=== PATIENT | female | born 1940 | race Caucasian/White ===

== ENCOUNTER 2019-07-08 17:12 | Emergency (ER) | payer MEDICARE ==
--- NOTE | 2019-07-08 17:17 | ERPHSYRPT ---
- History of Present Illness Time Seen by Provider: 07/08/19 17:17 Source: patient, family Exam Limitations: no limitations Physician History: 78 y/o white female accidentally tripped over a cement step in her garage. pt fell directly onto face. complains of facial pain and headache. denies loc at the time of incident but has persistent sx of pain, swelling and bruising Occurred: days ago (2) Reason for Fall: tripped Injuries/Pain Location: head, face Loss of Consciousness: no loss of consciousness Quality: aching, throbbing Severity of Pain-Max: moderate Severity of Pain-Current: moderate Associated Symptoms (Fall): denies symptoms, No confusion, No chest pain, No extremity injury, No muscle spasms, No neck pain, No seizures, No shortness of breath Allergies/Adverse Reactions: cephalexin [From Keflex] Allergy (Verified 07/08/19 17:20) Home Medications: Citalopram Hydrobromide 20 mg* [ceLEXa 20 MG] 20 mg PO DAILY 07/08/19 [ History] Levothyroxine Sodium 100 Mcg [Synthroid 100 Mcg] 100 mcg PO DAILY 07/08/19 [History] Lisinopril/Hydrochlorothiazide [Lisinopril-Hctz 20-25 mg Tab] 20 - 25 mg PO DAILY 07/08/19 [History] - Review of Systems Constitutional: No Symptoms Eyes: No Symptoms Ears, Nose, & Throat: Other (facial pain, bruising and swelling) Respiratory: No Symptoms Cardiac: No Symptoms Abdominal/Gastrointestinal: No Symptoms Genitourinary Symptoms: No Symptoms Musculoskeletal: No Symptoms Neurological: Headache Psychological: No Symptoms Endocrine: No Symptoms Hematologic/Lymphatic: No Symptoms Immunological/Allergic: No Symptoms All Other Systems: Reviewed and Negative - Past Medical History Pertinent Past Medical History: Yes Neurological History: No Pertinent History ENT History: No Pertinent History Cardiac History: No Pertinent History Respiratory History: No Pertinent History Endocrine Medical History: No Pertinent History Musculoskeletal History: No Pertinent History GI Medical History: No Pertinent History History: No Pertinent History Psycho-Social History: No Pertinent History Female Reproductive Disorders: No Pertinent History - Past Surgical History Neuro Surgical History: No Pertinent History Cardiac: No Pertinent History Respiratory: No Pertinent History Gastrointestinal: No Pertinent History Genitourinary: No Pertinent History Musculoskeletal: No Pertinent History Female Surgical History: No Pertinent History - Nursing Vital Signs Nursing Vital Signs: Initial Vital Signs Temperature 97.6 F 07/08/19 17:25 Pulse Rate 73 07/08/19 17:25 Respiratory Rate 18 07/08/19 17:25 Blood Pressure 180/101 07/08/19 17:25 O2 Sat by Pulse Oximetry 95 07/08/19 17:25 Pain Scale Pain Intensity 0 - [place] Coma Score Best Eye Response ([place]): (4) open spontaneously Best Verbal Response ([place]): (5) oriented Best Motor Response ([place]): (6) obeys commands [place] Total: 15 - Physical Exam General Appearance: no apparent distress, alert, anxiety Head Injury: ecchymosis, swelling, tenderness Eye Exam: PERRL/EOMI, eyes nml inspection ENT Exam: airway nml, hearing grossly normal, No dental injury, No hemotympanum Neck Exam: supple, trachea midline, full range of motion, normal alignment, normal inspection Respiratory/Chest Exam: No chest tenderness Gastrointestinal Exam: No tenderness Rectal Exam: not done Back Exam: normal inspection, normal range of motion, No CVA tenderness, No vertebral tenderness Extremity Exam: normal inspection, normal range of motion, capillary refill <3 sec, pelvis stable Skin Exam: ecchymosis (see above), No laceration SpO2 Interpretation: borderline oxygenation O2 Delivery: Room Air Ordered Tests: Active Orders 24 hr Category Date Time Status FACIAL BONES WO CONTRAST [CT] Stat Exams 07/08/19 17:34 Taken HEAD WITHOUT CONTRAST [CT] Stat Exams 07/08/19 17:35 Taken - Progress Progress: unchanged, re-examined Progress Note: 07/08/19 19:28 ct head - no acute intracranial abnormality. ct facial bones- no acute fx. Counseled pt/family regarding: diagnosis, need for follow-up, rad results - Departure Departure Disposition: Home Clinical Impression: Facial trauma, Head trauma, Abrasions of multiple sites, Fall, HTN ( hypertension) Condition: Stable Critical Care Time: No Referrals: JOHN BOOKER MD [Primary Care Provider] - Additional Instructions: keep all abrasion sites clean daily with soap and water. apply antibiotic daily to sites. take your medications as prescribed. follow up with primary doctor as needed.
[2019-07-08] MEDS ORDERED: Catapres 0.1 MG PO ONE ×2 (19:32→20:00)
[2019-07-08] MEDS ORDERED: Catapres 0.1 MG ONE ×2 (19:32→20:00)
[2019-07-08 20:30] VITALS: BP 165/81; PULSE 60; O2SAT 97
--- NOTE | 2019-07-08 22:41 | XRAY ---
Indication: Facial pain and bruising following fall 2 days ago. Multiple contiguous axial images obtained through the head without contrast. Comparison: April 25, 2006. Age-appropriate global atrophy and mild periventricular degenerative microvascular ischemia bilaterally. No acute intracranial hemorrhage, abnormal extra-axial fluid collection, or mass effect. Fourth ventricle is midline without hydrocephalus. Bony calvarium intact. Visualized paranasal sinuses and mastoid air cells are clear. CT facial bones reported separately. Impression: Nonacute senile brain. Comment: Preliminary interpretation was made by [facility]. No discrepancy.
--- NOTE | 2019-07-08 22:43 | XRAY ---
Indication: Facial pain and bruising following fall 2 days ago. Multiple contiguous axial images obtained through the facial bones. Sagittal and coronal reformatted images obtained. Comparison: None Patient is edentulous. Axial images negative for acute fracture, suspicious bone lesions, or radiopaque foreign body. Orbits including roof, [place], and floors are intact. Paranasal sinuses and nasal passages are clear. Minimal C3-C5 degenerative disc space narrowing. Remaining visualized noncontrasted soft tissues are unremarkable. CT head reported separately. Impression: Negative CT facial bones. Minimal C3-C5 degenerative changes. Comment: Preliminary interpretation was made by [facility]. No discrepancy.
== END 2019-07-08 20:35 | disposition home or self-care (01) ==
LOC: ED 17:12
DX: S00.81XA Abrasion of other part of head, initial encounter (principal); W03.XXXA Other fall on same level due to collision with another person, initial encounter; Y93.89 Activity, other specified; Y92.89 Other specified places as the place of occurrence of the external cause; I10 Essential (primary) hypertension
CPT/HCPCS: 70450; 70486; 99284; A9270-GY

== ENCOUNTER 2021-03-13 12:41 | Day surgery (SDC) | payer MEDICARE ==
[2021-03-13] MEDS ORDERED: LIDOCAINE HCL 2% 100 MG/5 ML IJ ONE (12:42)
[2021-03-13] MEDS ORDERED: Depo-Medrol 40 MG/ML IM ONE (12:42)
[2021-03-13] MEDS ORDERED: Lactated Ringers 1,000 ML IV ONE (13:40)
[2021-03-13] MEDS ORDERED: DIPRIVAN 200 MG/20 ML IV ONE (13:41)
--- NOTE | 2021-03-13 14:26 | XRAY ---
9 seconds of fluoroscopy was used in surgery for a bilateral L4-S1 MBB.
--- NOTE | 2021-03-13 14:29 | XRAY ---
Indication: Bilateral L4-S1 MBB. Intraoperative fluoroscopy provided for 9 seconds. Single digital spot image submitted for interpretation demonstrates posterior needle tips projecting over the expected left and right L4-S1 nerve roots. Correlate with intraoperative findings/report.
== END 2021-03-13 14:10 | disposition home or self-care (01) ==
LOC: SDC-PAIN 12:41
PROVIDERS: ATTEND Psychiatry & Neurology Pain Medicine
DX: M47.816 Spondylosis without myelopathy or radiculopathy, lumbar region (principal); Z79.899 Other long term (current) drug therapy
CPT/HCPCS: 64493; 64494; 72020; 77002; J1030; J2704

== ENCOUNTER 2021-05-08 08:45 | Day surgery (SDC) | payer MEDICARE ==
[2021-05-08] MEDS ORDERED: LIDOCAINE HCL 2% 100 MG/5 ML IJ ONE (08:46)
[2021-05-08] MEDS ORDERED: Depo-Medrol 40 MG/ML IM ONE (08:46)
[2021-05-08] MEDS ORDERED: DIPRIVAN 200 MG/20 ML IV ONE (09:44)
[2021-05-08] MEDS ORDERED: Lactated Ringers 1,000 ML IV ONE (10:09)
--- NOTE | 2021-05-08 10:43 | XRAY ---
Indication: Bilateral L4-S1 MBB. Intraoperative fluoroscopy provided for 15 seconds. Single digital spot image submitted for interpretation demonstrates posterior needle tips projecting over the expected left and right L4-S1 nerve roots. Correlate with intraoperative findings/report.
--- NOTE | 2021-05-08 10:45 | XRAY ---
15 seconds fluoroscopy time in surgery for bilateral L4-S1 MBB.
== END 2021-05-08 10:12 | disposition home or self-care (01) ==
LOC: SDC-PAIN 08:45
PROVIDERS: ATTEND Psychiatry & Neurology Pain Medicine
DX: M47.816 Spondylosis without myelopathy or radiculopathy, lumbar region (principal); I10 Essential (primary) hypertension; M19.90 Unspecified osteoarthritis, unspecified site; Z79.899 Other long term (current) drug therapy
CPT/HCPCS: 64493; 64494; 72020; 77002; J1030; J2704

== ENCOUNTER 2021-07-10 11:47 | Day surgery (SDC) | payer MEDICARE ==
[2021-07-10] MEDS ORDERED: Xylocaine 1% Vial 30 ML PF IJ ONE (11:48)
[2021-07-10] MEDS ORDERED: BUPIVACAINE 0.5% VIAL IJ ONE (11:48)
[2021-07-10] MEDS ORDERED: Depo-Medrol 40 MG/ML IM ONE (11:48)
[2021-07-10] MEDS ORDERED: Lactated Ringers 1,000 ML IV ONE (13:52)
[2021-07-10] MEDS ORDERED: DIPRIVAN 200 MG/20 ML IV ONE (14:26)
--- NOTE | 2021-07-10 16:22 | XRAY ---
Indication: Right L4-S1 RFA. Intraoperative fluoroscopy provided for 25 seconds. 3 digital spot image submitted for interpretation demonstrates posterior needle tips projecting over the expected right L4-S1 nerve roots. Correlate with intraoperative findings/report.
--- NOTE | 2021-07-10 16:38 | XRAY ---
25 seconds of fluoroscopy was used in surgery for a right L4-S1 RFA.
== END 2021-07-10 14:59 | disposition home or self-care (01) ==
LOC: SDC-PAIN 11:47
PROVIDERS: ATTEND Psychiatry & Neurology Pain Medicine
DX: M47.816 Spondylosis without myelopathy or radiculopathy, lumbar region (principal); I10 Essential (primary) hypertension; Z79.899 Other long term (current) drug therapy
CPT/HCPCS: 64635; 64636; 72100; 77002; 99100; J1030; J2001; J2704

== ENCOUNTER 2021-07-17 09:38 | Day surgery (SDC) | payer MEDICARE ==
[2021-07-17] MEDS ORDERED: Xylocaine 1% Vial 30 ML PF IJ ONE (09:39)
[2021-07-17] MEDS ORDERED: BUPIVACAINE 0.5% VIAL IJ ONE (09:39)
[2021-07-17] MEDS ORDERED: Depo-Medrol 40 MG/ML IM ONE (09:39)
[2021-07-17] MEDS ORDERED: Lactated Ringers 1,000 ML IV ONE (11:01)
[2021-07-17] MEDS ORDERED: DIPRIVAN 200 MG/20 ML IV ONE (11:29)
--- NOTE | 2021-07-17 13:40 | XRAY ---
Indication: Left L4-S1 RFA. Intraoperative fluoroscopy provided for 28 seconds. 3 digital spot images submitted for interpretation demonstrates posterior needle tips projecting over the expected left L4-S1 nerve roots. Correlate with intraoperative findings/report.
--- NOTE | 2021-07-17 13:48 | XRAY ---
28 seconds of fluoroscopy was used in surgery for a left L4-S1 RFA.
== END 2021-07-17 12:02 | disposition home or self-care (01) ==
LOC: SDC-PAIN 09:38
PROVIDERS: ATTEND Psychiatry & Neurology Pain Medicine
DX: M47.816 Spondylosis without myelopathy or radiculopathy, lumbar region (principal); I10 Essential (primary) hypertension; Z79.899 Other long term (current) drug therapy
CPT/HCPCS: 64635; 64636; 72100; 77002; 99100; J1030; J2001; J2704